=== PATIENT | female | born 1955 | race American Indian/Alaskan Native ===

== ENCOUNTER 2016-08-27 08:18 | Day surgery (SDC) | payer OTHER ==
[~2016-08-27 08:18] MED LIST: NACL 0.9% 1000 ML 1,000 ML IV SCH
--- NOTE | 2016-08-27 08:56 | Anesthesia Consultation ---
Anesthesia Consult and Med Hx - Airway Anesthetic Teeth Evaluation: Poor (some chipped teeth in the bottom), Dentures ( upper) ROM Head & Neck: Adequate Mental/Hyoid Distance: Adequate Mallampati Class: Class II Intubation Access Assessment: Probably Good - Pre-Operative Health Status ASA Pre-Surgery Classification: ASA2 Proposed Anesthetic Plan: MAC - Cardiovascular System Hx Hypertension: Yes - Endocrine Hx Non-Insulin Dependent Diabetes: Yes
--- NOTE | 2016-08-27 08:57 | Anesthesia Day of Surgery ---
Anesthesia Day of Surgery - Day of Surgery Patient Examined: Yes Patient H&P Reviewed: Yes Patient is NPO: Yes
[2016-08-27] MEDS ORDERED: WATER FOR IRRIG STERILE ONE (09:54)
[2016-08-27] MEDS ORDERED: WATER FOR IRRIG STERILE IR ONE (09:54)
[2016-08-27] MEDS ORDERED: DIPRIVAN 10 MG/ML IV ONE ×3 (10:25→11:52)
[2016-08-27] MEDS ORDERED: GI SPOT IJ ONE ×2 (11:10→11:15)
--- NOTE | 2016-08-27 12:10 | Operative Report ---
Operative Report Operative Report: Date of procedure: 08/27/2016 Procedure: Colonoscopy with snare polypectomy, multiple hot biopsy polypectomies , submucosal injection of saline of saline to elevate polyp, submucosal injection with spot and tattoo of polyp site, ablation of rectal polyp. Attending physician: Alton Montano MD Tafe Lecturer: Alton Montano MD Indication: Patient is a 61-year-old female who presents for colorectal cancer screening. A colonoscopy is done to evaluate patient so that treatment may be directed based on the findings. Consent: Informed consent was obtained after advising the patient and family regarding nature of this procedure, its indications, potential benefits as well as possible complications including but not limited to bleeding perforation and adverse reaction to medication, infection as well as other cardiopulmonary complications. An informed written and verbal consent was then obtained after due opportunity was provided for questions and answers. Monitoring: Patient was monitored continuously with pulse oximetry and electrocardiographic recordings as well as blood pressure recordings. Vital signs remained stable throughout this procedure with no untoward events. Preoperative assessment: Patient was assessed immediately prior to this procedure for capacity to tolerate monitored anesthesia care and moderate sedation as well as general anesthesia. Patient's ASA classification is 2, Mallampati class is 2, Hyomental distance is 3. Instrument: Myrio video colonoscope. Medications: Propofol, given intravenously in divided doses. For details please refer to anesthesia records. Description of procedure: Patient was placed in the left lateral decubitus position after achieving sedation, a digital rectal examination was performed following which the colonoscope was introduced into the anal verge and advanced to the cecum which was identified by the cecal valve, the appendiceal orifice, as well as by the cecal strap and direct transillumination. The colonoscope was subsequently withdrawn with careful inspection of all mucosal surfaces. Patient tolerated this procedure well and was subsequently taken to the recovery room. The following findings were noted. Findings: Patient has of thick densely adherent liquid stool that was fairly easily irrigated. There were diverticula seen in the sigmoid colon and the descending colon and also in the ascending colon. In the cecum, patient had a sessile 5 mm polyp which was removed by hot biopsy polypectomy. This site was then treated with a Hemoclip to prevent delayed perforation. Also in the cecum , patient had a 1.5 cm flat polyp. This was elevated with submucosal injection of saline and was then removed completely by snare electrocautery. The inspected site post polypectomy appeared to be without any residual polyp. At the hepatic flexure, patient had a sessile 4-5 mm polyp was removed by hot biopsy polypectomy and retrieved. There also was a broad-based flat polyp measured more than 1 cm. It was removed sequentially by hot biopsy polypectomy. The base was then ablated completely. A Hemoclip was applied over the site of the polypectomy .. In the rectum, patient had another flat polyp which measured approximately 3 mm. It was ablated completely. On the retroflex view at the anal verge, patient had internal hemorrhoids. Impression: Cecal polyp status post hot biopsy polypectomy and Hemoclip application. Flat cecal polyp status post submucosal injection and snare electrocautery. Hepatic flexure polyp status post hot biopsy polypectomy. Hepatic flexure polyp status post hot biopsy polypectomy with ablation and also Hemoclip application. Rectal polyp status post ablation. Diverticulosis of the sigmoid descending and ascending colon. Internal hemorrhoids. Residual retained thick liquid stool. Plan: Follow pathology report. High-fiber diet. Consider repeat colonoscopy in 6-12 months to check for any residual polyp, given the colonoscopic findings.
--- NOTE | 2016-08-27 12:11 | Discharge Summary ---
Short Stay Discharge Plan Activity: advance as tolerated Weight Bearing Status: Weight Bear as Tolerated Diet: regular Additional Instructions: Post Sedation D/C Instructions When you return home you may resume your regular diet unless otherwise directed. -Go directly home from the hospital and rest quietly. You may resume normal activities tomorrow. -Do NOT drive, return to work, operate any machinery or make any important personal or business decisions today. -Do NOT drink any alcohol or take nerve or sleeping drugs. They add to the effects of the medicine still present in your body. Follow up with Dr. Montano in 2 weeks to obtain pathology results and treatment plan. Avoid Aspirin and NSAIDS for 7-14 days. High Fiber Diet. Use stool softeners as needed. Follow up with: MARK BETH MD [Primary Care Provider] - 7 Days
[2016-08-27 12:17] VITALS: BP 130/79
--- NOTE | 2016-08-27 12:48 | Post Anesthesia Evaluation ---
- Post Anesthesia Evaluation Patient Participated: Yes Airway Patent: Yes Stable Respiratory Function: Yes Nausea/Vomiting: No Temp > 96.8F: Yes Pain Manageable: Yes Adequeate Hydration: Yes Anesthesia Complications: No
== END 2016-08-27 08:19 | disposition home or self-care (01) ==
LOC: GIO 08:18
PROVIDERS: ATTEND Internal Medicine Gastroenterology
DX: Z12.11 Encounter for screening for malignant neoplasm of colon (principal); D12.0 Benign neoplasm of cecum; K63.5 Polyp of colon; K62.1 Rectal polyp; K64.8 Other hemorrhoids; K57.30 Diverticulosis of large intestine without perforation or abscess without bleeding; I10 Essential (primary) hypertension; E11.9 Type 2 diabetes mellitus without complications; F17.210 Nicotine dependence, cigarettes, uncomplicated; K21.9 Gastro-esophageal reflux disease without esophagitis; Z79.84 Long term (current) use of oral hypoglycemic drugs; Z83.71 Family history of colonic polyps
CPT/HCPCS: 45381; 45384; 45385; 45388; 82962; 88305; J2704; J7030

== ENCOUNTER 2018-01-13 07:21 | Outpatient (CLI) | payer BC | END 2018-01-13 07:22 | disposition home or self-care (01) | LOC: MAMMO 07:21 | PROVIDERS: ATTEND Internal Medicine | DX: Z12.31 Encounter for screening mammogram for malignant neoplasm of breast (principal) | CPT/HCPCS: 77067 ==